=== PATIENT | female | born 1960 | race Caucasian/White ===

== ENCOUNTER 2021-11-04 13:54 | Inpatient (IN) | payer OTHER ==
[~2021-11-04] VITALS: Ht 157.5 cm; Wt 63.5 kg
[~2021-11-04 13:54] MED LIST: CAL MAG ZINC +1 EACH PO; CEFUROXIME500 MG PO; COZAAR100 MG PO; ECOTRIN81 MG PO; FINASTERIDE5 MG PO; FOLIC ACID0.8 MG PO; HAIR, SKIN & N1 EACH PO; LEVOXYL112 MCG PO; LODINE CAP 300300 MG PO; LYSINE1000 MG PO; MEDROL4 MG PO; OCUVITE EYE PL1 EACH PO; OMEGA 3-6-9 CO400 MG PO; PROVENTIL HFA6.7 GM INH; SILVADENE CREAM20 GM TOP; VITAMIN B12-FO1 EACH PO; VITAMIN C1000 MG PO
[2021-11-04 14:56] LABS: RED BLOOD COUNT 5.61 M/UL (4.00-5.10); WHITE BLOOD COUNT 27.7 K/UL (4.5-11.0)
[2021-11-04 18:28] LABS: ADENOVIRUS F 40/41 Not Detected (Negative); ASTROVIRUS Not Detected (Negative); CAMPYLOBACTER Not Detected (Negative); CRYPTOSPORIDIUM Not Detected (Negative); E.COLI 0157 Not Detected (Negative); ENTAMOEBA HISTOLYTICA Not Detected (Negative); ENTEROAGGREGATIVE E.COLI (EAEC Not Detected (Negative); ENTEROPATHOGENIC E.COLI (EPEC) Not Detected (Negative); ENTEROTOXIGENIC E.COLI (ETEC) Not Detected (Negative); GIARDIA LAMBLIA Not Detected (Negative); NOROVIRUS GI/GII Not Detected (Negative); PLESIOMONAS SHIGELLOIDES Not Detected (Negative); ROTOVIRUS A Not Detected (Negative); SALMONELLA Not Detected (Negative); SAPOVIRUS Not Detected (Negative); SHIG/ENTEROINVAS.ECOLI (EIEC) Not Detected (Negative); SHIGA-LIK TOX.PRO.E.COLI (STEC Not Detected (Negative); VIBRIO Not Detected (Negative); VIBRIO CHOLERAE Not Detected (Negative); YERSINIA ENTEROCOLITICA Not Detected (Negative)
[2021-11-05 05:58] LABS: HEMOGLOBIN 13.1 gm/dl (12.3-15.3); RED BLOOD COUNT 4.23 M/UL (4.00-5.10); WHITE BLOOD COUNT 12.3 K/UL (4.5-11.0)
[2021-11-05] MEDS ORDERED: METROCREAM 0.7545 GM TOP (09:39)
[2021-11-05] MEDS ORDERED: PIMECROLIMUS30 GM TOP (09:39)
[2021-11-05] MEDS ORDERED: ATORVASTATIN CA10 MG PO (09:43)
[2021-11-05] MEDS ORDERED: AMLODIPINE BESY10 MG PO (09:43)
[2021-11-05] MEDS ORDERED: LORATADINE10 MG PO (09:44)
[2021-11-05] MEDS ORDERED: TRICOR 145 MG145 MG PO (09:44)
[2021-11-05] MEDS ORDERED: BIOTIN2500 MCG PO (09:45)
[2021-11-05] MEDS ORDERED: ACETAMINOPHEN325 MG PO (09:46)
[2021-11-05] MEDS ORDERED: PRESERVISION A1 EAC2 PO (09:46)
[2021-11-05] MEDS ORDERED: IBU-200200 MG PO (09:47)
== END 2021-11-05 17:14 | disposition home or self-care (01) | DRG 178 ==
LOC: ER1 13:54 → M/S 21:13 → CDU 21:13 → CCU 21:13 → M/S 11-05 12:11
PROVIDERS: Emergency Medicine; ADMIT Internal Medicine
DX: J69.0 Pneumonitis due to inhalation of food and vomit (principal); N17.9 Acute kidney failure, unspecified; A08.39 Other viral enteritis; Z20.822 Contact with and (suspected) exposure to COVID-19; F17.210 Nicotine dependence, cigarettes, uncomplicated; E86.0 Dehydration; E83.52 Hypercalcemia; E86.9 Volume depletion, unspecified; E03.9 Hypothyroidism, unspecified; I10 Essential (primary) hypertension; Z86.69 Personal history of other diseases of the nervous system and sense organs; Z99.81 Dependence on supplemental oxygen; Z93.1 Gastrostomy status
CPT/HCPCS: 36415; 71045; 80053; 83605; 83690; 83735; 85025; 87040; 87449; 87507; 93005; 96374; 96375; 99285; J0696; J2405; J7030; Q9967; U0002